=== PATIENT | female | born 1985 | race African-American/Black ===

== ENCOUNTER 2016-12-15 21:16 | Emergency (ER) | payer MEDICAID ==
[~2016-12-15] VITALS: Ht 162.6 cm; Wt 89.5 kg
[~2016-12-15 21:16] MED LIST: HYDR-3533 PO
[2016-12-15 21:18] VITALS: BP 111/76; PULSE 78; RESP 16; TEMP 98.3; O2SAT 100
[2016-12-15] MEDS ORDERED: CIPR500T2 PO (22:30)
[2016-12-15] MEDS ORDERED: CIPROFLOXACIN 500 MG TAB PO ONE (22:30)
--- NOTE | 2016-12-15 22:34 | PD ---
HPI Chief Complaint: Skin Problem Time Seen by Provider: 22:30 Travel History International Travel<30 days: No Contact w/Intl Traveler<30days: No Traveled to known affect area: No History of Present Illness HPI 31-year-old black female presents to emergency department requesting a tetanus immunization. She stepped on a nail through her flip flops yesterday at home. She states that he had stepped on a sinai nail that went through her flip- flop into her right foot distal third. She states that the area is mildly tender. She denies any fever chills. No drainage. No redness. PFSH Past Medical History Narrative Medical Migraines, chronic back pain, GERD Diminished Hearing: No GERD: Yes Gestational Age in Weeks: 12 Immunizations Current: Yes Migraines: Yes Seizures: No Tetanus Vaccination: > 5 Years ?: Unknown LMP: 08/2015 : 5 Para: 3 : 1 Ovarian Cysts: Yes Past Surgical History Endocrine Surgery: No Gynecologic Surgery: Yes () Social History Alcohol Use: No Tobacco Use: No Substance Use: No Allergies-Medications (Allergen,Severity, Reaction): Coded Allergies: No Known Allergies (Verified , 12/15/16) Reported Meds & Prescriptions Reported Meds & Active Scripts Active Ciprofloxacin (Ciprofloxacin HCl) 500 Mg Tab 500 Mg PO BID Reported Lortab 5 mg/325 mg (Hydrocodone/Acetaminophen 5 mg/325 mg) 1 Tab 1 Tab PO Q4H PRN Review of Systems Except as stated in HPI: all other systems reviewed are Neg General / Constitutional: No: Fever, Chills HENT: Positive: Headaches, No: Sore Throat Cardiovascular: No: Chest Pain or Discomfort, Tachycardia Respiratory: No: Cough Gastrointestinal: No: Nausea, Vomiting Musculoskeletal: Positive: Pain, No: Arthralgias, Limited ROM, Edema Skin: No Rash, No Dryness Physical Exam Narrative GENERAL: This is a well-nourished, well-developed patient, in no apparent distress. SKIN: No rashes, ecchymoses or lesions. Warm and dry. HEAD: Atraumatic. Normocephalic. EYES: PERRL, EOMI, no discharge or injection. No scleral icterus. EARS: Clear NOSE: Nasal turbinates appear normal. THROAT: Mucosa pink and moist. Airway patent. NECK: Trachea midline. supple, moves head freely. LUNGS: Clear to auscultation. CV: Regular in rhythm. ABDOMEN: Soft nontender. EXT: No clubbing cyanosis or edema. Examination the plantar surface of right foot reveals a small superficial puncture wound to the distal third. No obvious retained foreign body. No erythema or warmth. No discharge. Minimally tender to palpation. This does not appear to be involving the bone. Data Data Last Documented VS Vital Signs Date Time Temp Pulse Resp B/P Pulse Ox O2 Delivery O2 Flow Rate FiO2 12/15/16 21:18 98.3 78 16 111/76 100 Room Air MDM Medical Decision Making Medical Screen Exam Complete: Yes Emergency Medical Condition: Yes Medical Record Reviewed: Yes Differential Diagnosis MDM: High Differential diagnoses: Fracture, sprain, strain, dislocation, contusion, neurovascular injury Narrative Course This is a plantar puncture wound through a rubber flip-flop. I do not see any obvious infection at this point but she will be covered for pseudomonas with Cipro. Patient currently takes Lortab for chronic pain. Tetanus in position updated. She is advised to recheck with her doctor in the next 1-2 days. Patient's tetanus status updated. Cipro 500 mg by mouth Diagnosis Primary Impression: Puncture wound of plantar aspect of right foot without complication Qualified Code: S91.331A - Puncture wound of plantar aspect of right foot without complication, initial encounter Patient Instructions: General Instructions Additional Instructions: Rest. Elevation. Daily wound care with soap, water and Neosporin. Cipro. Recheck with your doctor in the next 1-2 days. Return to the if any problems. Med/Other Pt SpecificInfo: Prescription(s) given Scripts Ciprofloxacin 500 Mg [id number] Mg PO BID #14 TAB Prov:Shelly Meek DO 12/15/16 Disposition: 01 DISCHARGE HOME Condition: Stable Ousmane Macdonald Dec 15, 2016 22:34
[2016-12-15] MEDS ORDERED: TETANUS/DIPHTHERIA TOXOID ADULT 0.5 ML VIAL IM ONE (22:45)
== END 2016-12-15 23:19 | disposition home or self-care (01) ==
LOC: NEPK 21:16
DX: R51 Headache (principal); K21.9 Gastro-esophageal reflux disease without esophagitis; Z23 Encounter for immunization; Z79.899 Other long term (current) drug therapy; Z34.91 Encounter for supervision of normal pregnancy, unspecified, first trimester
CPT/HCPCS: 90471; 90714

== ENCOUNTER 2017-07-24 08:48 | Emergency (ER) | payer MEDICAID ==
[~2017-07-24] VITALS: Ht 162.6 cm; Wt 85.0 kg
[~2017-07-24 08:48] MED LIST changes: +CIPR500T2 PO; -HYDR-3533 PO
[2017-07-24 08:49] VITALS: BP 115/67; PULSE 82; RESP 16; TEMP 98.6; O2SAT 99
[2017-07-24] MEDS ORDERED: SODIUM CHLOR 0.9% 1000 ML INJ 1,000 ML IV SCH (09:11)
[2017-07-24] MEDS ORDERED: KETOROLAC TROMETHAMINE 30 MG/ML (IVP) VIAL IV PUSH ONE (09:15)
[2017-07-24] MEDS ORDERED: SODIUM CHLORIDE 0.9% FLUSH 10 ML FLUSH IV FLUSH PRN (09:15)
[2017-07-24] MEDS ORDERED: ONDANSETRON HCL 4 MG/2 ML VIAL IVP ONE (09:15)
[2017-07-24 09:20] VITALS: O2SAT 98
--- NOTE | 2017-07-24 09:31 | PD ---
HPI Chief Complaint: GI Complaint Time Seen by Provider: 08:56 Travel History International Travel<30 days: No Contact w/Intl Traveler<30days: No Traveled to known affect area: No History of Present Illness HPI 31-year-old female here for evaluation of 5 days of flulike symptoms. She reports chills, sweats, cough, shortness of breath, sore throat, diffuse body aches, abdominal discomfort, and 2 episodes of vomiting yesterday. States that her tested positive for the flu last week and her son at home tested positive for strep throat. Cough is productive of yellow/greenish sputum. No hemoptysis. She is also having some loose bowel movements. History of endometrial ablation and bilateral tubal ligation. [facility] Past Medical History Diminished Hearing: No GERD: Yes Gestational Age in Weeks: 12 Immunizations Current: Yes Migraines: Yes Seizures: No ?: Not : 4 Para: 3 Miscarriage: 1 : 1 Ovarian Cysts: Yes Past Surgical History Endocrine Surgery: No Gynecologic Surgery: Yes () Social History Alcohol Use: Yes Tobacco Use: Yes Substance Use: No Allergies-Medications (Allergen,Severity, Reaction): Coded Allergies: No Known Allergies (Verified , 12/15/16) Reported Meds & Prescriptions Reported Meds & Active Scripts Active Tamiflu (Oseltamivir Phosphate) 75 Mg Cap 75 Mg PO BID 5 Days Ciprofloxacin (Ciprofloxacin HCl) 500 Mg Tab 500 Mg PO BID Review of Systems Except as stated in HPI: all other systems reviewed are Neg Physical Exam Narrative GENERAL: Well-developed, well-nourished, comfortable, no apparent distress. SKIN: Focused skin assessment warm/dry. HEAD: Atraumatic. Normocephalic. EYES: Pupils equal and round. No scleral icterus. No injection or drainage. ENT: No nasal bleeding or discharge. Mucous membranes pink and moist. NECK: Trachea midline. No JVD. CARDIOVASCULAR: Regular rate and rhythm. No murmur appreciated. RESPIRATORY: No accessory muscle use. Clear to auscultation. Breath sounds equal bilaterally. GASTROINTESTINAL: Abdomen soft, non-tender, nondistended. Hepatic and splenic margins not palpable. MUSCULOSKELETAL: No obvious deformities. No clubbing. No cyanosis. No edema. NEUROLOGICAL: Awake and alert. No obvious cranial nerve deficits. Motor grossly within normal limits. Normal speech. PSYCHIATRIC: Appropriate mood and affect; insight and judgment normal. Data Data Last Documented VS Vital Signs Date Time Temp Pulse Resp B/P (MAP) Pulse Ox O2 Delivery O2 Flow Rate FiO2 07/24/17 09:20 18 07/24/17 09:20 98 Room Air 07/24/17 08:49 98.6 82 Orders Orders Complete Blood Count With Diff (07/24/17 09:11) Comprehensive Metabolic Panel (07/24/17 09:11) Lipase (07/24/17 09:11) Prothrombin Time / Inr (Pt) (07/24/17 09:11) Act Partial Throm Time (Ptt) (07/24/17 09:11) Urinalysis - C+S If Indicated (07/24/17 09:11) Iv Access Insert/Monitor (07/24/17 09:11) Ecg Monitoring (07/24/17 09:11) Oximetry (07/24/17 09:11) Ondansetron Inj (Zofran Inj) (07/24/17 09:15) Sodium Chlor 0.9% 1000 Ml Inj (Ns 1000 M (07/24/17 09:11) Sodium Chloride 0.9% Flush (Ns Flush) (07/24/17 09:15) Influenzae A/B Antigen (07/24/17 09:11) Group A Rapid Strep Screen (07/24/17 09:11) Ketorolac Inj (Toradol Inj) (07/24/17 09:15) Strep Culture (Group A) (07/24/17 09:25) Oseltamivir (Tamiflu) (07/24/17 10:15) Ed Discharge Order (07/24/17 10:46) Labs Laboratory Tests Test 07/24/17 09:25 07/24/17 09:35 White Blood Count 3.0 TH/MM3 Red Blood Count 3.85 MIL/MM3 Hemoglobin 12.2 GM/DL Hematocrit 35.4 % Mean Corpuscular Volume 91.9 FL Mean Corpuscular Hemoglobin 31.7 PG Mean Corpuscular Hemoglobin Concent 34.5 % Red Cell Distribution Width 13.0 % Platelet Count 212 TH/MM3 Mean Platelet Volume 8.1 FL Neutrophils (%) (Auto) 30.1 % Lymphocytes (%) (Auto) 54.2 % Monocytes (%) (Auto) 13.8 % Eosinophils (%) (Auto) 1.4 % Basophils (%) (Auto) 0.5 % Neutrophils # (Auto) 0.9 TH/MM3 Lymphocytes # (Auto) 1.7 TH/MM3 Monocytes # (Auto) 0.4 TH/MM3 Eosinophils # (Auto) 0.0 TH/MM3 Basophils # (Auto) 0.0 TH/MM3 CBC Comment AUTO DIFF Differential Total Cells Counted 100 Neutrophils % (Manual) 31 % Band Neutrophils % 2 % Lymphocytes % 55 % Monocytes % 11 % Eosinophils % 1 % Neutrophils # (Manual) 1.0 TH/MM3 Differential Comment FINAL DIFF MANUAL Platelet Estimate NORMAL Red Cell Morphology Comment NORMAL Prothrombin Time 10.7 SEC Prothromb Time International Ratio 1.1 RATIO Activated Partial Thromboplast Time 27.5 SEC Blood Urea Nitrogen 6 MG/DL Creatinine 0.92 MG/DL Random Glucose 78 MG/DL Total Protein 7.1 GM/DL Albumin 3.2 GM/DL Calcium Level 8.0 MG/DL Alkaline Phosphatase 76 U/L Aspartate Amino Transf (AST/SGOT) 15 U/L Alanine Aminotransferase (ALT/SGPT) 11 U/L Total Bilirubin 0.3 MG/DL Sodium Level 137 MEQ/L Potassium Level 3.6 MEQ/L Chloride Level 104 MEQ/L Carbon Dioxide Level 27.8 MEQ/L Anion Gap 5 MEQ/L Estimat Glomerular Filtration Rate 85 ML/MIN Lipase 162 U/L Urine Color YELLOW Urine Turbidity HAZY Urine pH 5.5 Urine Specific [place] 1.017 Urine Protein NEG mg/dL Urine Glucose (UA) NEG mg/dL Urine Ketones NEG mg/dL Urine Occult Blood NEG Urine Nitrite NEG Urine Bilirubin NEG Urine Urobilinogen LESS THAN 2.0 MG/DL Urine Leukocyte Esterase NEG Urine WBC 1 /hpf Urine Squamous Epithelial Cells 6 /hpf Urine Bacteria OCC /hpf Urine Mucus FEW /lpf Microscopic Urinalysis Comment CULT NOT INDICATED MDM Medical Decision Making Medical Screen Exam Complete: Yes Emergency Medical Condition: Yes Medical Record Reviewed: Yes Differential Diagnosis Influenza, strep pharyngitis, dehydration, acute intra-abdominal process unlikely. Narrative Course Vital signs are within normal limits. CBC: WBC 3, hemoglobin 12.2, hematocrit 35.4, platelets 212, lymphocytes 54%, monocytes 13.8%. CMP is unremarkable. Lipase is 162. UA is not suggestive of UTI. Group A strep is negative. Influenza A+. The patient was given a liter normal saline IV, and on reassessment is resting comfortably. She was given a dose of Tamiflu. She is stable for discharge home with outpatient follow-up with her primary care physician this week. She was advised to saturate with plenty of fluids. She was informed on when to return to the emergency department. She verbalizes understanding and agreement with plan. Diagnosis Primary Impression: Influenza A Referrals: Primary Care Physician 3 days Additional Instructions: Follow-up with your primary care physician this week. See hydrated with plenty of fluids. Return to the emergency department for worsening symptoms or any other concerns. Scripts Ondansetron Odt (Zofran Odt) 4 Mg Tab 4 MG SL Q8HR Y for Nausea/Vomiting, #15 TAB 0 Refills Prov: Yann Asher MD 07/24/17 Oseltamivir (Tamiflu) 75 Mg Cap 75 MG PO BID for Mgmt Viral Infection for 5 Days, #10 CAP 0 Refills Prov: Yann Asher MD 07/24/17 Disposition: 01 DISCHARGE HOME Condition: Stable Yann Asher MD Jul 24, 2017 09:31
[2017-07-24 09:41] LABS: AUTOMATED NEUTROPHIL # 0.9 TH/MM3 (1.8-7.7); BASOPHIL % 0.5 % (0.0-2.0); EOSINOPHIL % 1.4 % (0.0-4.0); HEMATOCRIT 35.4 % (35.0-46.0); HEMOGLOBIN 12.2 GM/DL (11.6-15.3); LYMPH % 54.2 % (9.0-44.0); LYMPHOCYTE # 1.7 TH/MM3 (1.0-4.8); MEAN CELL VOLUME 91.9 FL (80.0-100.0); MEAN CORPUSCULAR HEMOGLOBIN 31.7 PG (27.0-34.0); MEAN CORPUSCULAR HGB CONC 34.5 % (32.0-36.0); MEAN PLATELET VOLUME 8.1 FL (7.0-11.0); MONO % 13.8 % (0.0-8.0); MONOCYTE # 0.4 TH/MM3 (0-0.9); NEUT % 30.1 % (16.0-70.0); PLATELET COUNT 212 TH/MM3 (150-450); RED BLOOD COUNT 3.85 MIL/MM3 (4.00-5.30)
[2017-07-24 09:47] LABS: INTERNATIONAL NORMALIZED RATIO 1.1 RATIO; PROTHROMBIN TIME - PATIENT 10.7 SEC (9.8-11.6)
[2017-07-24 09:54] LABS: ALBUMIN 3.2 GM/DL (3.4-5.0); AST (GOT) 15 U/L (15-37); BICARBONATE 27.8 MEQ/L (21.0-32.0); BLOOD UREA NITROGEN 6 MG/DL (7-18); CHLORIDE 104 MEQ/L (98-107); CREATININE 0.92 MG/DL (0.50-1.00); GLOMERULAR FILTRATION RATE 85 ML/MIN (>89); GLUCOSE,RANDOM 78 MG/DL (74-106); SODIUM (NA) 137 MEQ/L (136-145)
[2017-07-24 09:56] LABS: ALT (GPT) 11 U/L (10-53)
[2017-07-24 09:58] LABS: BACTERIA, URINE OCC /hpf; BILIRUBIN, URINE NEG (NEG); BLOOD, URINE NEG (NEG); GLUCOSE,URINE NEG (NEG); KETONE, URINE NEG (NEG); MUCUS URINE FEW /lpf (OCC); NITRITE,URINE NEG (NEG); PH, URINE 5.5 (5.0-8.5); SQUAMOUS EPITHELIAL CELL URINE 6 /hpf (0-5); URINE COLOR YELLOW (YELLW/STRAW); URINE LEUKOCYTE ESTERASE NEG (NEG)
[2017-07-24 09:58] LABS: ALKALINE PHOSPHATASE 76 U/L (45-117); TOTAL BILIRUBIN ADULT 0.3 MG/DL (0.2-1.0); TOTAL PROTEIN 7.1 GM/DL (6.4-8.2)
[2017-07-24] MEDS ORDERED: OSELTAMIVIR PHOSPHATE 75 MG CAP PO ONE (10:15)
[2017-07-24 10:26] LABS: BANDS 2 % (0-6); LYMPHOCYTES 55 % (9-44); MONOCYTES 11 % (0-8); POLYS (SEG NEUTROPHILS) 31 % (16-70)
[2017-07-24] MEDS ORDERED: OSEL75 PO (10:45)
[2017-07-24] MEDS ORDERED: ZOFR4TAB3 SL (10:56)
[2017-07-24 10:59] VITALS: BP 103/57
== END 2017-07-24 11:01 | disposition home or self-care (01) ==
LOC: NEPE 08:48
DX: J09.X2 Influenza due to identified novel influenza A virus with other respiratory manifestations (principal); R05 Cough; R06.02 Shortness of breath; R07.0 Pain in throat; M79.1 Myalgia; R11.10 Vomiting, unspecified; R09.3 Abnormal sputum; R19.7 Diarrhea, unspecified; Z72.0 Tobacco use; Z87.19 Personal history of other diseases of the digestive system; Z86.69 Personal history of other diseases of the nervous system and sense organs
CPT/HCPCS: 80053; 81001; 83690; 85007; 85027; 85610; 85730; 87081; 87804; 87880; 96374; 96375; 99284; J1885; J2405; J7030